=== PATIENT | female | born 1980 | race Caucasian/White ===

== ENCOUNTER 2019-02-13 05:29 | Emergency (ER) | payer SELFPAY ==
[2019-02-13 06:29] LABS: Bilirubin Negative (Negative); Blood, Urine Negative (Negative); Clarity Turbid (Clear); Glucose, Urine (Dipstick) Negative (Negative); Leukocyte Negative (Negative); Nitrite Negative (Negative); Pregnancy Test - Urine (BHCG) Negative (Negative); Pregu Control Background? CLEAR/WHITE (CLR/WHITE); Pregu Control Bar Appear? YES (CONTROL BAR); Protein, Urine (Dipstick) Negative (Neg-Trace); Specific Gravity 1.025 (1.002-1.036); Specific Gravity, Urine 1.025 (1.005-1.030); Urobilinogen 0.2 mg/dL (0.2-1.0); pH, Urine 5.5 (5.0-9.0)
[2019-02-13] MEDS ORDERED: Ibuprofen 600 MG TAB ONE (07:11)
[2019-02-13] MEDS ORDERED: Lidocaine 1% PF 5 ML VIAL ONE (07:11)
[2019-02-13] MEDS ORDERED: cefTRIAXone\\ROCEPHIN 250 MG VIAL ONE (07:11)
[2019-02-13 20:02] LABS: Chlam.trachomatis by PCR,Urine Not Detected (NotDetected)
== END 2019-02-13 07:48 | disposition home or self-care (01) ==
LOC: SCSER 05:29
DX: R10.2 Pelvic and perineal pain (principal); K52.9 Noninfective gastroenteritis and colitis, unspecified; H60.12 Cellulitis of left external ear; L23.7 Allergic contact dermatitis due to plants, except food; Z87.891 Personal history of nicotine dependence
CPT/HCPCS: 81003; 81025; 87480; 87491; 87510; 87591; 87660; 96372; J0696; J2001